=== PATIENT | male | born 1940 | race Caucasian/White ===

== ENCOUNTER 2017-05-01 19:02 | Inpatient (IN) | payer MEDICARE ==
[~2017-05-01] VITALS: Ht 167.6 cm; Wt 59.1 kg
[2017-05-01] VITALS (9 sets, daily range): BP systolic 106–137; BP diastolic 54–87
--- NOTE | ~2017-05-01 | PR ---
[place], [place] PROGRESS NOTE NAME: ELOY PURI UNIT #: [id number] ROOM: 422 DOCTOR: ANTONY LARSEN,CHARLI Lara BIRTHDATE: [birth year] DOS: 05/08/2017 ADDENDUM I agree with the above plans as described and follow the patient up clinically and adjust accordingly. CHARLI HARDY MD CM:PNTRANS [id number] CHARLI HARDY MD 05/10/17 1321 interface
--- NOTE | ~2017-05-01 | PR ---
[place], [place] PROGRESS NOTE NAME: ELOY PURI UNIT #: [id number] ROOM: 422 DOCTOR: ANTONY LARSEN,CHARLI Lara BIRTHDATE: [birth year] DOS: 05/08/2017 ADDENDUM I agree with the above plans as described and follow the patient up clinically and adjust accordingly. CHALRI HARDY MD CM:PNTRANS [id number] CHARLI HARDY MD 05/10/17 1321 interface
--- NOTE | ~2017-05-01 | PR ---
[place], [place] PROGRESS NOTE NAME: ELOY PURI UNIT #: [id number] ROOM: 422 DOCTOR: EDWIN DENG BIRTHDATE: [birth year] DOS: 05/08/2017 SUBJECTIVE: The is being followed for possible healthcare-associated pneumonia of the right lower lobe. I did review his CT results. All of his blood cultures are negative. The patient himself denies any nausea, vomiting, diarrhea. He states his breathing is better. Denies cough. Denies any pain anywhere. No recent fevers or shaking chills. WBCs ____ 12.8. He has been afebrile. MEDICATIONS: Include Mucinex, Calazime, Remeron, aspirin, Lovenox, Zosyn, Flomax, Restoril, Zofran, [place], Tylenol. LABORATORY DATA: Cultures as reviewed above. WBC is 12.8, platelets 218. BUN 10, creatinine 0.72. PHYSICAL EXAMINATION: VITAL SIGNS: Show temperature 98.3, pulse 122, respirations 18, BP 101/72: GENERAL: A 77-year-old male, in no acute distress. HEAD, EYES, EARS, NOSE AND THROAT: Normocephalic. No thrush. LUNGS: Clear to auscultation bilaterally. Respirations even and unlabored. HEART: Regular rhythm. No murmur appreciated. ABDOMEN: Soft, nondistended, nontender. EXTREMITIES: No edema or deformity. SKIN: Warm, dry and pale. Free of rashes. ASSESSMENT: Leukocytosis. We suspect healthcare associated pneumonia. PLAN: At this point in time, we will continue the Zosyn if the WBCs persist. He may need to have a modified barium swallow to evaluate for possible aspiration. Case discussed with Dr. Charli Hardy. OCTOBER ISH PINEDA [place], [place] PROGRESS NOTE NAME: ELOY PURI UNIT #: [id number] ROOM: 422 DOCTOR: EDWIN DENGOCTOBER BIRTHDATE: [birth year] CHARLI HARDY MD CM:RAJENDRA [id number] OCTOBER EDWIN SLUSHER OPERATOR 05/10/17 1318 interface
--- NOTE | ~2017-05-01 | PROC NOTE ---
[place], [place] PROCEDURE NOTE NAME: ELOY PURI UNIT #: [id number] ROOM: 422 DOCTOR: BRIANNA HERNANDEZ BIRTHDATE: [birth year] DOS: 05/10/2017 MODIFIED BARIUM SWALLOW LOCATION: [facility], room 422, bed 1. DOCTOR: Dr. Sinclair. RADIOLOGIST: Dr. Stevenson. BACKGROUND INFORMATION: The patient, a 77-year-old male, was seen for a modified barium swallow. This test was ordered to rule out aspiration. The patient was admitted from the alf with change in mental status. Medical history is significant for CVA, COPD, right eye cataract, hernia, FTT and bronchitis. The patient is also diagnosed with right lower lobe pneumonia as well as leukocytosis. He currently receives a regular diet and thin liquids. The patient denies any swallowing difficulty. He was noted to be confused. The patient was cooperative for the assessment. Congested respirations were noted as well as frequent cough prior to oral presentations. Oral peripheral examination revealed edentulous status. Labial skills were mildly reduced in range of motion. The patient was able to protrude and lateralize his tongue. When asked to elevate and depress his tongue, he did not and stated "I can't do that." The patient was able to volitionally cough and swallow. METHODS AND MATERIALS USED FOR THE EXAM: The patient was positioned in the lateral plane and examination was viewed under fluoroscopy. The patient was presented with a variety of consistencies to assess swallowing skills including applesauce mixed with barium presented in half teaspoon amounts, barium-coated cookie and banana given in bite size pieces and thin liquid barium taken by cup in single sip size amounts. ORAL PHASE: The patient achieved adequate labial seal around cup and spoon with no anterior loss. Bolus formation and transit were adequate. Mastication of soft solids was slow. Tongue to palate contact was within normal limits. Tongue to posterior pharyngeal wall contact was moderately impaired with puree and soft solid. Velar functioning was within normal limits with no nasal regurgitation. PHARYNGEAL PHASE: The pharyngeal swallow occurred within a timely manner. During the swallow, laryngeal elevation and epiglottic function were adequate. No penetration or aspiration occurred with any consistency. Pooling in the vallecula did occur with puree and soft solid. The patient appeared aware of this residue as he attempted reswallows to clear it. This was effective in clearing some of the residue. Liquid wash was also attempted and was again effective in clearing some, but not all of the residue. ESOPHAGEAL PHASE: This phase of the swallow was not formally assessed during this examination. [place], [place] PROCEDURE NOTE NAME: ELOY PURI UNIT #: [id number] ROOM: 422 DOCTOR: BRIANNA HERNANDEZ BIRTHDATE: [birth year] IMPRESSIONS AND RECOMMENDATIONS: Based upon assessment results, this 77-year-old patient exhibited a [id number] oropharyngeal dysphagia. He displayed reduced tongue to posterior pharyngeal wall contact, resulting in pooling in the vallecula. He was able to clear some of the residue with subsequent swallows and/or liquid wash. No penetration or aspiration occurred with any consistency given. Recommend the patient consume a soft diet and thin liquids. Recommend use of safe swallow strategies such as upright positioning for meals, small bites and sips, alternating liquids and solids and double swallows after every couple of bite. Followup therapy is recommended, focusing on strengthening exercises, education and use of strategies. Thank you very much for this referral. Should you have any questions regarding this patient, please contact the speech pathologist at [phone]. BRIANNA HERNANDEZ CM:PROCNOTE:PROCEDURE NOTE [id number] BRIANNA HERNANDEZ
[~2017-05-01 19:02] MED LIST: CELEXA20 MG PO; FLUOXETINE10 M1 PO; FLUOXETINE10 MG PO; LEVAQUIN750 M1 PO; MIRTAZAPINE7.5 MG; MIRTAZAPINE7.5 MG PO; MOM30 ML PO; NKHM; PERIACTIN4 MG PO; PROZAC10 M1 PO; RISPERDAL0.25 MG; RISPERDAL0.25 MG PO; TYLENOL325 M1 PO; TYLENOL325 M2 PO; VITAMIN B1250 MCG PO; VITAMIN D50000 UNIT PO; XIFAXAN200 M1 PO; ZOLPIDEM10 M1 PO
--- NOTE | 2017-05-01 19:10 | NUR ---
BRAIN ATTACK CALLED.
--- NOTE | 2017-05-01 19:30 | NUR ---
PT RESTING IN BED WITH NO DISTRESS NOTED, NO NEW DEFICITS NOTED AT THIS TIME.
[2017-05-01 19:44] LABS: BASO # 0.1 10*3/uL (0.0-0.1); BASO % 0.4 % (0.0-1.0); EOS # 0.2 10*3/uL (0.0-0.4); EOS % 1.3 % (1.0-4.0); HEMATOCRIT 41.5 % (42.0-52.0); HEMOGLOBIN 13.8 g/dl (14.0-18.0); LYMPH # 1.5 10*3/uL (1.3-4.4); LYMPH % 12.1 % (27.0-41.0); MEAN CELL VOLUME 94.5 fl (80.0-94.0); MEAN CORPUSCULAR HGB 31.4 pg (27.0-31.0); MEAN CORPUSCULAR HGB CONC 33.3 g/dl (33.0-37.0); MONO # 0.9 10*3/uL (0.1-1.0); MONO % 7.3 % (3.0-9.0); NEUT # 9.7 10*3/uL (2.3-7.9); NEUT % 76.5 % (47.0-73.0); PLATELET COUNT AUTOMATED 242 10*3/uL (130-400); RED BLOOD COUNT 4.39 10*6/uL (4.50-5.90); WHITE BLOOD COUNT 12.6 10*3/uL (4.8-10.8)
[2017-05-01 19:55] LABS: ACT PARTIAL THROMBO TIME 22.8 SECONDS (20.8-31.5)
[2017-05-01 20:03] LABS: ALBUMIN 3.1 gm/dl (3.1-4.5); ALKALINE PHOSPHATASE 79 U/L (45-117); BUN 16 mg/dl (7-24); CHLORIDE 105 mmol/L (98-107); LIPASE 278 U/L (73-393); POTASSIUM 3.9 mmol/L (3.5-5.1); SGOT/AST 18 IU/L (3-35); SGPT/ALT 23 U/L (12-78); SODIUM 140 mmol/L (136-145); TOTAL PROTEIN 6.8 gm/dL (6.4-8.2)
[2017-05-01 20:04] LABS: TROPONIN I < 0.015 ng/ml (<0.045)
--- NOTE | 2017-05-01 20:15 | NUR ---
UNSUCCESSFUL STRAIGHT CATH FOR URINE, UNABLE TO ADVANCE CATHETER, PT YELLING "IT HURTS." DR MACIAS AWARE.
[2017-05-01] MEDS ORDERED: BIOFREEZE118 ML T (23:51)
[2017-05-01] MEDS ORDERED: MEGACE 40400 MG/10 PO (23:52)
[2017-05-01] MEDS ORDERED: REMERON15 M2 PO (23:53)
[2017-05-01] MEDS ORDERED: VITAMIN D34000 UNIT PO (23:55)
[2017-05-02] VITALS: BP 131/73
--- NOTE | 2017-05-02 00:32 | NUR ---
SPOKE TO DR. BOUCHER AT THIS TIME TO INFORM OF UPDATED MEDREC. DR. BOUCHER NOTIFIED OF PREVIOUS FAILED ATTEMPT AT CATHETERIZATION IN ER. DR. BOUCHER STATED TO BLADDER SCAN THE PT. FOR VOLUME >350. IF VOLUME <350 DR. BOUCHER STATED THAT WE CAN WAIT TO SEE IF THE PT. NOTIFIES US OF NEXT URINE FOR URINE CULTURE.
--- NOTE | 2017-05-02 01:31 | NUR ---
BLADDER SCAN OF PT. SHOWED 338 OF URINE. PT. GIVEN FLOMAX PER ORDERS, WILL RE-EVALUATE TO MAINTAIN DR. BOUCHER'S PARAMETERS IN REGARDS TO CATHETERIZATION.
--- NOTE | 2017-05-02 01:39 | NUR ---
SPOKE WITH AT THIS TIME IN REGARDS TO PTS. ZOSYN ORDER. ATTEMPTED TO RE-PROFILE MED. STILL NO ACCESS ON PT. MED WILL BE OVER-RIDDEN.
--- NOTE | 2017-05-02 02:59 | NUR ---
BLADDER SCAN RE-CHECKED AT THIS TIME. PT. VOLUME AT 596, WILL MEDICATE PT. FOR PAIN PROPHYLACTICALLY PRIOR TO PERFORMING CATHETERIZATION PER DR. BOUCHER PREVIOUS PARAMETERS BY PHONE.
--- NOTE | 2017-05-02 03:02 | NUR ---
PT. GIVEN MORPHINE AT THIS TIME. PT. HAD CATHETER ATTEMPTED IN ER UNSUCCESSFULLY WITH A LOT OF PAIN PER ER NURSE. WILL WAIT FOR MEDICATION TO TAKE AFFECT PRIOR TO STRAIGHT CATH ATTEMPT.
[2017-05-02 03:25] LABS: BASO # 0.1 10*3/uL (0.0-0.1); BASO % 0.4 % (0.0-1.0); EOS # 0.2 10*3/uL (0.0-0.4); EOS % 1.3 % (1.0-4.0); HEMATOCRIT 42.2 % (42.0-52.0); HEMOGLOBIN 13.7 g/dl (14.0-18.0); LYMPH # 1.8 10*3/uL (1.3-4.4); LYMPH % 15.8 % (27.0-41.0); MEAN CELL VOLUME 95.7 fl (80.0-94.0); MEAN CORPUSCULAR HGB 31.1 pg (27.0-31.0); MEAN CORPUSCULAR HGB CONC 32.5 g/dl (33.0-37.0); MEAN PLATELET VOLUME 10.9 fl (9.6-12.3); MONO # 0.9 10*3/uL (0.1-1.0); MONO % 7.8 % (3.0-9.0); NEUT # 8.4 10*3/uL (2.3-7.9); PLATELET COUNT AUTOMATED 187 10*3/uL (130-400); RED BLOOD COUNT 4.41 10*6/uL (4.50-5.90); RED CELL DISTRI WIDTH 18.8 % (0-14.5); WHITE BLOOD COUNT 11.5 10*3/uL (4.8-10.8)
[2017-05-02 03:54] LABS: ALBUMIN 3.1 gm/dl (3.1-4.5); ALKALINE PHOSPHATASE 81 U/L (45-117); BUN 15 mg/dl (7-24); CHLORIDE 108 mmol/L (98-107); CHOLESTEROL 177 mg/dL (<200); CREATININE 0.78 mg/dL (0.70-1.30); HDL CHOLESTEROL 33 mg/dl (40-60); LDL CHOLESTEROL 132 mg/dL (9-159); MAGNESIUM 2.1 mg/dL (1.5-2.1); PHOSPHOROUS 2.6 mg/dL (2.5-4.9); SGOT/AST 25 IU/L (3-35); SGPT/ALT 23 U/L (12-78); SODIUM 141 mmol/L (136-145); TOTAL PROTEIN 6.9 gm/dL (6.4-8.2); TRIGLYCERIDES 60 mg/dl (<150); VLDL CHOLESTEROL 12 mg/dL (6-40)
--- NOTE | 2017-05-02 03:58 | NUR ---
SPOKE WITH DR. BOUCHER AT THIS TIME REGARDING CATHETERIZATION OF PT. PER DR. BOUCHER, CHANGE INTERMITTENT CATH TO GARCIA CATHETERIZATION.
--- NOTE | 2017-05-02 04:17 | NUR ---
PT. VOIDED PRIOR TO CATHETERIZATION. BLADDER SCAN SHOWED 0ML. CONTACTED DR. BOUCHER TO INFORM. DR. BOUCHER STATED TO DC THE ORDER FOR A GARCIA CATHETER.
--- NOTE | 2017-05-02 04:50 | NUR ---
ENTERED PTS. ROOM AT THIS TIME TO CONTINUE MONITORING EFFECTS OF GEODON, PT. WAS ATTEMPTING TO GET UP. PT. WAS ASKED IF HE NEEDED REPOSITIONED, PT. STATED YES. PT. WAS REPOSITIONED IN BED WITH HOB ELEVATED FOR COMFORT. PT. STATED THE NEW POSITION WAS COMFORTABLE. BED ALARM ON, WILL CONTINUE TO MONITOR PT.
--- NOTE | 2017-05-02 06:42 | NUR ---
PT. MISSING PT, APTT, B12, FOLATE, VIT. D LABS. PT. REFUSING TO BE STUCK ANYMORE. DR. BOUCHER NOTIFIED.
[2017-05-02 08:00] VITALS: BP 126/60
[2017-05-02 12:00] VITALS: BP 106/65
--- NOTE | 2017-05-02 13:23 | NUR ---
DR LIMON NOTIFIED OF PT REFUSAL TO BE ST CATHED AT THIS TIME.
[2017-05-02 20:00] VITALS: BP 105/48
[2017-05-03] VITALS: BP 123/84
--- NOTE | 2017-05-03 02:00 | NUR ---
24 HR chart check completed.
[2017-05-03 06:41] LABS: BASO # 0.1 10*3/uL (0.0-0.1); BASO % 0.4 % (0.0-1.0); EOS # 0.1 10*3/uL (0.0-0.4); HEMATOCRIT 41.9 % (42.0-52.0); LYMPH # 1.2 10*3/uL (1.3-4.4); LYMPH % 9.6 % (27.0-41.0); MEAN CELL VOLUME 94.6 fl (80.0-94.0); MEAN CORPUSCULAR HGB 31.6 pg (27.0-31.0); MEAN CORPUSCULAR HGB CONC 33.4 g/dl (33.0-37.0); MEAN PLATELET VOLUME 10.8 fl (9.6-12.3); MONO # 0.8 10*3/uL (0.1-1.0); NEUT # 10.2 10*3/uL (2.3-7.9); NEUT % 81.7 % (47.0-73.0); PLATELET COUNT AUTOMATED 149 10*3/uL (130-400); RED BLOOD COUNT 4.43 10*6/uL (4.50-5.90); RED CELL DISTRI WIDTH 18.6 % (0-14.5); WHITE BLOOD COUNT 12.5 10*3/uL (4.8-10.8)
[2017-05-03 07:12] LABS: BUN 13 mg/dl (7-24); CHLORIDE 107 mmol/L (98-107); CREATININE 0.74 mg/dL (0.70-1.30); POTASSIUM 4.4 mmol/L (3.5-5.1); SODIUM 139 mmol/L (136-145)
[2017-05-03 08:00] VITALS: BP 122/52
--- NOTE | 2017-05-03 08:30 | NUR ---
Patient resting quietly with no c/o discomfort. Respirations easy and regular. Vital signs stable. No overt distress. CODY ROGERS R
[2017-05-03 09:28] LABS: VITAMIN D, 25-HYDROXY 79.7 ng/mL (30-100)
--- NOTE | 2017-05-03 09:38 | NUR ---
per patient's chart, he was sent into the hospital from [facility], materials planner/production planner will contact [facility] and see if patient is able to return
[2017-05-03 12:00] VITALS: BP 118/54
--- NOTE | 2017-05-03 13:24 | NUR ---
PHYSICAL THERAPY Attempted PT eval but pt politely but adamantly declines participation. Will re-attempt as able. Inna Lange, PT
--- NOTE | 2017-05-03 15:20 | NUR ---
Patient comes from [facility]. Chinedu stated patient can return when stable for discharge.
[2017-05-03 16:00] VITALS: BP 123/47
[2017-05-03 20:00] VITALS: BP 105/52
[2017-05-04] VITALS: BP 120/48
[2017-05-04 05:58] LABS: BASO # 0.1 10*3/uL (0.0-0.1); BASO % 0.5 % (0.0-1.0); EOS # 0.2 10*3/uL (0.0-0.4); EOS % 1.5 % (1.0-4.0); HEMATOCRIT 43.2 % (42.0-52.0); HEMOGLOBIN 14.6 g/dl (14.0-18.0); LYMPH # 1.2 10*3/uL (1.3-4.4); LYMPH % 11.1 % (27.0-41.0); MEAN CELL VOLUME 94.3 fl (80.0-94.0); MEAN CORPUSCULAR HGB 31.9 pg (27.0-31.0); MEAN CORPUSCULAR HGB CONC 33.8 g/dl (33.0-37.0); MONO # 0.9 10*3/uL (0.1-1.0); MONO % 8.3 % (3.0-9.0); NEUT # 8.2 10*3/uL (2.3-7.9); NEUT % 76.8 % (47.0-73.0); PLATELET COUNT AUTOMATED 170 10*3/uL (130-400); RED BLOOD COUNT 4.58 10*6/uL (4.50-5.90); RED CELL DISTRI WIDTH 18.8 % (0-14.5); WHITE BLOOD COUNT 10.7 10*3/uL (4.8-10.8)
[2017-05-04 06:11] LABS: BUN 11 mg/dl (7-24); CHLORIDE 106 mmol/L (98-107); CREATININE 0.89 mg/dL (0.70-1.30); POTASSIUM 4.5 mmol/L (3.5-5.1); SODIUM 140 mmol/L (136-145)
--- NOTE | 2017-05-04 07:00 | NUR ---
URINE SAMPLE IS NEEDED FROM PT. PT IS INCONTINENT AND REFUSING TO BE STRAIGHT CATHED AT THIS TIME.
[2017-05-04 08:00] VITALS: BP 123/92
--- NOTE | 2017-05-04 09:40 | NUR ---
PHYSICAL THERAPY Attempted PT evaluation again this am, but pnt declined. He did, however, state he was w/c bound prior to admission and required assist with all transfers. Will attempt mobility eval at a later date. Dena Lopez, PT
--- NOTE | 2017-05-04 10:34 | NUR ---
DR. DOHERTY CONTACTED FOR CONSULT REGARDING ABDOMENAL PAIN AND ABNORMAL CT.
[2017-05-04 11:18] LABS: BILIRUBIN NEGATIVE (NEGATIVE); BLOOD NEGATIVE (NEGATIVE); CLARITY CLEAR (CLEAR); COLOR YELLOW (YELLOW); GLUCOSE NEGATIVE (NEGATIVE); KETONE NEGATIVE (NEGATIVE); LEUKO ESTERASE NEGATIVE (NEGATIVE); NITRITE NEGATIVE (NEGATIVE); PH 6.5 (5.0-9.0); SPECIFIC GRAVITY <= 1.005 (1.005-1.030)
[2017-05-04 11:28] LABS: RBC 0-2 rbc/hpf (0-2)
[2017-05-04 12:00] VITALS: BP 107/50
--- NOTE | 2017-05-04 14:00 | NUR ---
PT BLADDER SCANNED PER ORDER, 594CC URINE PRESENT PER BLADDER SCANNER. PT DENIES DISCOMFORT OR URGE TO URINATE. PT REFUSED OT TRY AND URINATE. NOTIFIED AND SUGGESTED A STRAIGHT CATH OR GARCIA TO BE INSERTED. PT ADAMANTLY REFUSED TO BE CATHED.
--- NOTE | 2017-05-04 15:20 | NUR ---
PHYSICAL THERAPY Physical Therapy Evaluation completed this date. See eval document for complete details. Will begin PT intervention to address muscle weakness, and decreased functional mobility independence. Recommend d/c back to the [facility] as able[place] [id number] based on chart review and PT eval. Dena Lopez, PT
[2017-05-04 16:00] VITALS: BP 90/51
--- NOTE | 2017-05-04 18:15 | NUR ---
AT BEDSIDE AND INSERTED A 18FR CUDAY INDWELLING GARCIA, IMMIDIATE RETURN OF STAR COLORED URINE 500CC OUTPUT. PT TOLERATED WELL.
--- NOTE | 2017-05-04 19:45 | NUR ---
PT. RESTING IN BED. IVF CONTINUES ORDERED VIA RAN, SITE ASYMPT. LUNGS CLEAR BILAT. ABDOMEN SOFT, NONDISTENDED AND NORMO. NO PERIPHERAL EDEMA NOTED. KNEE HIGH ODILON HOSE BILAT. RESP. EASY AND REG, NODISTRESS. CANDELARIO PEÑA RN
[2017-05-04 20:00] VITALS: BP 125/56
[2017-05-05] VITALS: BP 132/58
[2017-05-05 07:12] LABS: BASO % 0.2 % (0.0-1.0); EOS # 0.2 10*3/uL (0.0-0.4); HEMATOCRIT 45.8 % (42.0-52.0); HEMOGLOBIN 15.2 g/dl (14.0-18.0); LYMPH # 1.6 10*3/uL (1.3-4.4); LYMPH % 11.4 % (27.0-41.0); MEAN CELL VOLUME 94.6 fl (80.0-94.0); MEAN CORPUSCULAR HGB 31.4 pg (27.0-31.0); MEAN CORPUSCULAR HGB CONC 33.2 g/dl (33.0-37.0); MEAN PLATELET VOLUME 11.4 fl (9.6-12.3); MONO % 6.6 % (3.0-9.0); NEUT # 11.3 10*3/uL (2.3-7.9); NEUT % 78.8 % (47.0-73.0); PLATELET COUNT AUTOMATED 172 10*3/uL (130-400); RED BLOOD COUNT 4.84 10*6/uL (4.50-5.90); RED CELL DISTRI WIDTH 18.8 % (0-14.5); WHITE BLOOD COUNT 14.3 10*3/uL (4.8-10.8)
[2017-05-05 07:21] LABS: BUN 8 mg/dl (7-24); CHLORIDE 107 mmol/L (98-107); CREATININE 0.84 mg/dL (0.70-1.30); POTASSIUM 4.1 mmol/L (3.5-5.1); SODIUM 140 mmol/L (136-145)
[2017-05-05 08:00] VITALS: BP 127/59
--- NOTE | 2017-05-05 10:19 | NUR ---
PHYSICAL THERAPY Papa was seen this AM 1:1 for his therapy and talked into his treatment. Pt had rom, act, act assist to bilateral UE, LE working to Pt's tolerance with repeat verbal cues to help with his Ex and trying to work in all planes. Pt having pneumonia and weak and tight in bilateral UE,LE and said that he was not going to get up. SIMONA OLMEDO CLINIC OFFICE COORDINATOR.
--- NOTE | 2017-05-05 10:25 | NUR ---
DR. STONE IN ROOM TO SEE PT. PT RESTING IN BED WITH HOB ELEVATED EATING BREAKFAST. HR-120-130'S. DR. STONE AWARE.
[2017-05-05 11:09] LABS: BASO # 0.1 10*3/uL (0.0-0.1); BASO % 0.5 % (0.0-1.0); EOS # 0.2 10*3/uL (0.0-0.4); EOS % 1.1 % (1.0-4.0); HEMATOCRIT 45.9 % (42.0-52.0); HEMOGLOBIN 15.3 g/dl (14.0-18.0); LYMPH # 1.5 10*3/uL (1.3-4.4); LYMPH % 10.7 % (27.0-41.0); MEAN CELL VOLUME 94.1 fl (80.0-94.0); MEAN CORPUSCULAR HGB 31.4 pg (27.0-31.0); MEAN CORPUSCULAR HGB CONC 33.3 g/dl (33.0-37.0); MEAN PLATELET VOLUME 11.3 fl (9.6-12.3); MONO # 0.7 10*3/uL (0.1-1.0); NEUT # 11.5 10*3/uL (2.3-7.9); RED BLOOD COUNT 4.88 10*6/uL (4.50-5.90); RED CELL DISTRI WIDTH 18.8 % (0-14.5); WHITE BLOOD COUNT 14.2 10*3/uL (4.8-10.8)
[2017-05-05 11:10] LABS: PLATELET COUNT AUTOMATED 241 10*3/uL (130-400)
--- NOTE | 2017-05-05 11:16 | NUR ---
CALLED DR. BOUCHER MADE AWARE OF CRITICAL LACTIC ACID LEVEL. NO NEW ORDERS.
--- NOTE | 2017-05-05 11:29 | NUR ---
PATIENT STARTED ON CT SCAN PREP. PATIENT RECEIVING IV BOLUS, NO COMPLAINTS AT THIS TIME FROM THE PATIENT.
[2017-05-05 11:35] LABS: ALBUMIN 2.9 gm/dl (3.1-4.5); ALKALINE PHOSPHATASE 82 U/L (45-117); BUN 8 mg/dl (7-24); CHLORIDE 107 mmol/L (98-107); CREATININE 0.91 mg/dL (0.70-1.30); LIPASE 141 U/L (73-393); MAGNESIUM 2.1 mg/dL (1.5-2.1); SGOT/AST 28 IU/L (3-35); SGPT/ALT 19 U/L (12-78); SODIUM 137 mmol/L (136-145); TOTAL PROTEIN 7.3 gm/dL (6.4-8.2); TROPONIN I < 0.015 ng/ml (<0.045)
[2017-05-05 12:00] VITALS: BP 109/67
--- NOTE | 2017-05-05 13:38 | NUR ---
PATIENT LAB RESULT OF LACTIC ACID 2.1. DR. BOUCHER NOTIFIED, NO FURTHER ORDERS GIVEN.
--- NOTE | 2017-05-05 15:39 | NUR ---
PATIENT LAYING COMFORTABLY IN BED. PATIENT IS CURRENTLY RECEIVING IVPB VANC. DENIES ANY SOB OR N/V/D. PATIENT HAS ABD TENDERNESS IN LLQ AND RLQ. STUDENT NURSE WILL CONTINUE DOCUMENTATION AND MED ADMINISTRATION.
[2017-05-05 16:00] VITALS: BP 119/67
--- NOTE | 2017-05-05 16:08 | NUR ---
DR. BOUCHER MADE AWARE OF LACTIC ACID LEVEL. NO NEW ORDERS AT THIS TIME.
[2017-05-05 20:00] VITALS: BP 120/52
[2017-05-06] VITALS: BP 131/66
--- NOTE | 2017-05-06 02:43 | NUR ---
PATIENT RESTING IN BED WITH EYES CLOSED. RESPS EASY AND REGULAR. BED IN LOWEST POSITION, CALL LIGHT IN REACH
--- NOTE | 2017-05-06 03:00 | NUR ---
24 HR chart check completed.
[2017-05-06 07:50] LABS: HEMATOCRIT 42.9 % (42.0-52.0); HEMOGLOBIN 14.1 g/dl (14.0-18.0); MEAN CELL VOLUME 95.1 fl (80.0-94.0); MEAN CORPUSCULAR HGB 31.3 pg (27.0-31.0); MEAN CORPUSCULAR HGB CONC 32.9 g/dl (33.0-37.0); MEAN PLATELET VOLUME 11.3 fl (9.6-12.3); PLATELET COUNT AUTOMATED 199 10*3/uL (130-400); RED BLOOD COUNT 4.51 10*6/uL (4.50-5.90); RED CELL DISTRI WIDTH 18.7 % (0-14.5)
[2017-05-06 08:00] VITALS: BP 137/66
[2017-05-06 08:06] LABS: BUN 6 mg/dl (7-24); CHLORIDE 107 mmol/L (98-107); CREATININE 0.82 mg/dL (0.70-1.30); SODIUM 141 mmol/L (136-145)
[2017-05-06 08:07] LABS: TOTAL CELLS COUNTED 100 #CELLS
[2017-05-06 08:09] LABS: PLATELET SUFFICIENCY NORMAL (NORMAL)
--- NOTE | 2017-05-06 08:45 | NUR ---
PHYSICAL THERAPY Patient refused therapy x 2 this AM saying he dosen't feel like it. Will check back later with the patient. Haresh Gomes PRIVATE DETECTIVE
[2017-05-06 12:00] VITALS: BP 115/60
[2017-05-06 16:00] VITALS: BP 118/49; BP 118/60
--- NOTE | 2017-05-06 16:00 | NUR ---
HOB ELEVATED, EASY RESPIRATIONS WITH SKIN W/D. GENERALIZED WEAKNESS & STIFFNESS. ANSWERS ASSESSMENT QUESTIONS APPROPRIATELY, FLAT AFFECT. CALL LIGHT SYSTEM REINFORCED FOR ASSISTANCE. SEE SHIFT ASSESSMENT.
--- NOTE | 2017-05-06 19:17 | NUR ---
NO OBVIOUS CHANGES NOTED THIS SHIFT.
--- NOTE | 2017-05-06 19:55 | NUR ---
PT AWAKE AND ALERT. NO DISTRESS NOTED. RESPIRATIONS ARE UNLABORED. SKIN W/D. HOB ELEVATED.
[2017-05-06 20:00] VITALS: BP 144/70
--- NOTE | 2017-05-06 20:05 | NUR ---
24 HOUR CHART CHECK COMPLETED.
--- NOTE | 2017-05-06 23:00 | NUR ---
ASSUMED CARE OF PT AT THIS TIME, RESPS EASY AND NONLABORED WITH NO S/S OF DISTRESS CALL LIGHT WITH IN REACH
[2017-05-07] VITALS: BP 138/74
--- NOTE | 2017-05-07 04:50 | NUR ---
PT RESTING IN BED WITH EYES CLOSED RESPS EASY AND NONLABORED WITH NO S/S OF DISTRESS, CALL LIGHT WITH IN REACH
[2017-05-07 06:17] LABS: HEMATOCRIT 40.8 % (42.0-52.0); HEMOGLOBIN 13.6 g/dl (14.0-18.0); MEAN CELL VOLUME 95.1 fl (80.0-94.0); MEAN CORPUSCULAR HGB 31.7 pg (27.0-31.0); MEAN CORPUSCULAR HGB CONC 33.3 g/dl (33.0-37.0); MEAN PLATELET VOLUME 11.6 fl (9.6-12.3); PLATELET COUNT AUTOMATED 209 10*3/uL (130-400); RED BLOOD COUNT 4.29 10*6/uL (4.50-5.90); RED CELL DISTRI WIDTH 18.6 % (0-14.5); WHITE BLOOD COUNT 12.8 10*3/uL (4.8-10.8)
[2017-05-07 06:29] LABS: ALBUMIN 2.6 gm/dl (3.1-4.5); ALKALINE PHOSPHATASE 72 U/L (45-117); BUN 8 mg/dl (7-24); CHLORIDE 109 mmol/L (98-107); CREATININE 0.84 mg/dL (0.70-1.30); SGOT/AST 18 IU/L (3-35); SGPT/ALT 16 U/L (12-78); SODIUM 142 mmol/L (136-145); TOTAL PROTEIN 6.5 gm/dL (6.4-8.2)
[2017-05-07 07:04] LABS: TOTAL CELLS COUNTED 100 #CELLS
[2017-05-07 07:05] LABS: PLATELET SUFFICIENCY NORMAL (NORMAL)
[2017-05-07 08:00] VITALS: BP 150/53
--- NOTE | 2017-05-07 11:52 | NUR ---
PHYSICAL THERAPY Mr Manzo seen this PM 1:1 for his physical therapy session. Papa said NO that her did not want any therapy, did not want his arms or legs touched. He said that he was ok and was doing Ex ? SIMONA OLMEDO SPRING CLIPPER.
[2017-05-07 12:00] VITALS: BP 136/70
--- NOTE | 2017-05-07 12:28 | NUR ---
Faxed patient clincals to [place] for review.
--- NOTE | 2017-05-07 13:54 | NUR ---
Patient LTC at the [facility], can return when stable for discharge.
[2017-05-07 16:00] VITALS: BP 132/57
--- NOTE | 2017-05-07 19:48 | NUR ---
24 HOUR CHART CHECK COMPLETED.
[2017-05-07 20:00] VITALS: BP 129/71
[2017-05-08] VITALS: BP 142/68
--- NOTE | 2017-05-08 01:39 | NUR ---
PATIENT IS RESTING COMFORTABLY IN BED. PILLOWS PLACED UNDER ARMS TO PREVENT SKIN BREAKDOWN FROM CONTRACTURES IN UPPER EXTREMITIES. PATIENT WAS COOPERATIVE UPON ASSESSMENT. NO FURTHER REQUESTS AT THIS TIME. CALL LIGHT SYSTEM REINFORCED AND WITHIN REACH, SEE SHIFT ASSESSMENT.
[2017-05-08 06:12] LABS: HEMATOCRIT 41.6 % (42.0-52.0); MEAN CELL VOLUME 93.9 fl (80.0-94.0); MEAN CORPUSCULAR HGB 31.6 pg (27.0-31.0); MEAN CORPUSCULAR HGB CONC 33.7 g/dl (33.0-37.0); MEAN PLATELET VOLUME 10.8 fl (9.6-12.3); PLATELET COUNT AUTOMATED 218 10*3/uL (130-400); RED BLOOD COUNT 4.43 10*6/uL (4.50-5.90); RED CELL DISTRI WIDTH 18.3 % (0-14.5); WHITE BLOOD COUNT 12.8 10*3/uL (4.8-10.8)
--- NOTE | 2017-05-08 06:30 | NUR ---
PATIENT IS RESTING IN BED. PATIENT HASN'T HAD ANY PAIN THROUGHOUT THE NIGHT AND HAS NO FURTHER REQUESTS AT THIS TIME. CALL LIGHT IS WITHIN REACH.
[2017-05-08 06:38] LABS: PLATELET SUFFICIENCY NORMAL (NORMAL); TOTAL CELLS COUNTED 100 #CELLS
[2017-05-08 06:42] LABS: BUN 10 mg/dl (7-24); CHLORIDE 105 mmol/L (98-107); CREATININE 0.72 mg/dL (0.70-1.30); POTASSIUM 3.6 mmol/L (3.5-5.1); SODIUM 137 mmol/L (136-145)
--- NOTE | 2017-05-08 07:30 | NUR ---
[facility] SN AND INSTRUCTOR CHUCK POSADAS. ASSUMING CARE OF PT.
[2017-05-08 08:00] VITALS: BP 136/67
--- NOTE | 2017-05-08 09:45 | NUR ---
PT C/O NUMBNESS, UPON FURTHER ASSESSMENT PT STATES HE "FEELS NUMB ALL OVER" AND "THATS MOST OF THE TIME".PT THEN STATED HE FELT NAUSEOUS AND HE HADN'T ORDERED BREAKFAST. [facility] SN ASSISTED HIM WITH BREAKFAST ORDER. NOTIFIED DR GEORGES WHO WAS ROUNDING AT THIS TIME. NO NEW ORDERS.WILL CONTINUE TO MONITOR. CALL LIGHT IN REACH.
--- NOTE | 2017-05-08 11:22 | NUR ---
NOTIFIED BY TEST DIRECTOR THAT PT HR WAS HOLDING ABOVE 130. PT WAS EATING BREAKFAST AND HAD JUST HAD BATH. ENCOURAGE PT TO BEAR DOWN. IMMEDIATELY HR DROPPED INTO 120'S. PT CONTINUES TO EAT. WILL MONITOR.
[2017-05-08 12:00] VITALS: BP 101/72
--- NOTE | 2017-05-08 14:10 | NUR ---
RAVI PINEDA CNP., ROUNDED FOR INFECTIOUS DISEASE, NO NEW ORDERS.
[2017-05-08 16:00] VITALS: BP 108/70
[2017-05-08 20:00] VITALS: BP 129/70
--- NOTE | 2017-05-08 20:47 | NUR ---
PATIENT RESTING COMFORTABLY IN BED. NO VOICED COMPLAINTS AT THIS TIME. RESPIRATIONS EASY/REG. ON RA, DENIES SOB. TEDS ON. FLUIDS MAINTAINED PER ORDER. CALL LIGHT IN REACH.
[2017-05-09] VITALS: BP 138/63
[2017-05-09 05:56] LABS: HEMATOCRIT 40.6 % (42.0-52.0); HEMOGLOBIN 13.7 g/dl (14.0-18.0); MEAN CELL VOLUME 94.2 fl (80.0-94.0); MEAN CORPUSCULAR HGB 31.8 pg (27.0-31.0); MEAN CORPUSCULAR HGB CONC 33.7 g/dl (33.0-37.0); MEAN PLATELET VOLUME 11.2 fl (9.6-12.3); PLATELET COUNT AUTOMATED 209 10*3/uL (130-400); RED BLOOD COUNT 4.31 10*6/uL (4.50-5.90); RED CELL DISTRI WIDTH 18.5 % (0-14.5); WHITE BLOOD COUNT 11.4 10*3/uL (4.8-10.8)
[2017-05-09 06:40] LABS: TOTAL CELLS COUNTED 100 #CELLS
[2017-05-09 06:41] LABS: PLATELET SUFFICIENCY NORMAL (NORMAL)
[2017-05-09 08:00] VITALS: BP 106/86; BP 122/60
--- NOTE | 2017-05-09 08:00 | NUR ---
SLEEPING, AROUSES EASILY WITH NO VOICED C/O OFFERED. EASY RESPIRATIONS WITH SKIN W/D. REPOSITIONED FOR COMFORT & TO RELIEVE PRESSURE AREAS. SEE SHIFT ASSESSMENT.
--- NOTE | 2017-05-09 10:00 | NUR ---
DR GEORGES IN TO SEE PT.
--- NOTE | 2017-05-09 10:21 | NUR ---
REFUSES TO GET OOB TO CHAIR.
--- NOTE | 2017-05-09 11:19 | NUR ---
DR GUERRA CALLED REGARDING RENEWAL OF ABX.
[2017-05-09 12:00] VITALS: BP 126/88
--- NOTE | 2017-05-09 13:07 | NUR ---
PT REFUSING TO EAT, SPOKE WITH HIS EARLIER THIS SHIFT REGARDING POOR APPETITE. STATES THIS IS ONGOING PROBLEM. OFFERED PT MULTUPLE CHOICES, CONTINUES TO DECLINE.
--- NOTE | 2017-05-09 13:13 | NUR ---
SPOKE WITH DR GEORGES REGARDING POOR APPETITE, NEW ORDERS RECEIVED.
[2017-05-09 16:00] VITALS: BP 129/72
--- NOTE | 2017-05-09 19:19 | NUR ---
NO OBVIOUS CHANGES NOTED THIS SHIFT.
[2017-05-09 20:00] VITALS: BP 132/74
--- NOTE | 2017-05-09 20:35 | NUR ---
PT RESTING IN BED. RESP-EASY AND REGULAR. NO C/O AT THIS TIME. ABD TENER TO TOUCH. DENIES ANY PAIN AT THIS TIME. CALL LIGHT IN REACH. SEE SHIFT ASSESSMENT.
--- NOTE | 2017-05-09 22:00 | NUR ---
PT RESTING IN BED. NO C/O AT THIS TIME. CALL LIGHT IN REACH.
[2017-05-10] VITALS: BP 126/81
--- NOTE | 2017-05-10 00:20 | NUR ---
PT SLEEPING IN BED, AWAKENS EASILY. RESP-EASY AND REGULAR. DENIES ANY PAIN AT THIS TIME. TOLERATED ROUTINE IV MED WITH NO PROBLEM. CALL LIGHT IN REACH. SEE SHIFT ASSESSMENT.
--- NOTE | 2017-05-10 04:00 | NUR ---
PT SLEEPING IN BED. RESP-EASY AND REGULAR. CALL LIGHT IN REACH.
--- NOTE | 2017-05-10 06:20 | NUR ---
TOLERATING IV MED WITH NO PROBLEM. REPOSITIONED FOR COMFORT. CALL LIGHT IN REACH.
[2017-05-10 06:32] LABS: HEMATOCRIT 40.9 % (42.0-52.0); HEMOGLOBIN 13.9 g/dl (14.0-18.0); MEAN CELL VOLUME 94.9 fl (80.0-94.0); MEAN CORPUSCULAR HGB 32.3 pg (27.0-31.0); MEAN PLATELET VOLUME 11.4 fl (9.6-12.3); PLATELET COUNT AUTOMATED 267 10*3/uL (130-400); RED BLOOD COUNT 4.31 10*6/uL (4.50-5.90); RED CELL DISTRI WIDTH 18.2 % (0-14.5); WHITE BLOOD COUNT 10.7 10*3/uL (4.8-10.8)
[2017-05-10 06:36] LABS: ALBUMIN 2.8 gm/dl (3.1-4.5); ALKALINE PHOSPHATASE 76 U/L (45-117); BUN 13 mg/dl (7-24); CHLORIDE 106 mmol/L (98-107); CREATININE 0.74 mg/dL (0.70-1.30); POTASSIUM 3.5 mmol/L (3.5-5.1); SGOT/AST 18 IU/L (3-35); SGPT/ALT 20 U/L (12-78); SODIUM 140 mmol/L (136-145); TOTAL PROTEIN 7.4 gm/dL (6.4-8.2)
[2017-05-10 06:56] LABS: PLATELET SUFFICIENCY NORMAL (NORMAL); TOTAL CELLS COUNTED 100 #CELLS
[2017-05-10 08:00] VITALS: BP 131/77
--- NOTE | 2017-05-10 09:00 | NUR ---
patient will be going back to [facility] when medically stable
--- NOTE | 2017-05-10 09:27 | NUR ---
PHYSICAL THERAPY Mr Manzo seen this AM 1:1 and talked into his therapy session. Pt had rom stretching, what act assist, act Ex he could do to bilateral LE/UE working to Pt's tolerance slow and Papa did not get up-set with me this morning. Pt having left LE -10,12d knee extension spending more time with left knee extension. Pt not wanting up on the side of his bed or up in bedside chair. SIMONA OLMEDO DIRECTOR OF ANNUAL GIVING.
[2017-05-10 12:00] VITALS: BP 147/76
--- NOTE | 2017-05-10 15:02 | NUR ---
SPEECH PATHOLOGY MBS completed as per orders. Patient exhibited a mild-moderate oropharyngeal dysphagia. He displayed reduced tongue to posterior pharyngeal wall contact resulting in pooling in the valleculae. He was able to clear some of the residue with subsequent swallows and liquid wash. No penetration or aspiration occurred with any consistency given. Recommend soft diet and thin liquids. Recommend use of safe swallow strategies such as upright for meals, small bites and sips, alternating liquids and solids and double swallows after every couple bites. Follow up therapy is recommended to ensure safety of swallow through education, use of strategies and strengthening exercises. Will inform patient's nurse of results and mary. and dictated report will follow. Thank you for this referral. BRIANNA HERNANDEZ MSCCC-CRISIS THERAPIST
[2017-05-10 16:00] VITALS: BP 108/75
[2017-05-10 16:10] LABS: LEGIONELLA URINARY ANTIGEN Negative (Negative)
[2017-05-10] MEDS ORDERED: AUGMENTIN 875-875 MG PO (16:10)
[2017-05-10] MEDS ORDERED: MUCINEX ER600 MG PO (16:10)
[2017-05-10] MEDS ORDERED: ASPIRIN ADULT L81 M2 PO (16:10)
[2017-05-10] MEDS ORDERED: FLOMAX0.4 MG PO (16:10)
[2017-05-10] MEDS ORDERED: LOPRESSOR25 MG PO (16:10)
--- NOTE | 2017-05-10 16:57 | NUR ---
PATIENT BEING DISCHARGED BACK TO [facility]. REPORT WAS GIVEN TO SATHYA, FULL HOSPITAL CARE REPORT GIVEN, FULL HEAD TO TOE. NO CONCERNS FROM THE NURSE. WAITING FOR LFE TEAM TO WOOD INSPECTOR PATIENT.
--- NOTE | 2017-05-10 18:38 | NUR ---
Discharge instructions reviewed with patient/family. Patient receptive and verbalizes understanding. Follow-up care arranged. Written instructions given to patient/family. JUSTIN LOZA
--- NOTE | 2017-05-11 07:46 | NUR ---
PHYSICAL THERAPY CO-SIGN I approve of the Phyical Therapy notes written above. KEVIN VELAZQUEZ PT
== END 2017-05-10 18:38 | disposition other institution (70) | DRG 70 ==
LOC: ED 19:02 → EDHOLD 21:31 → 4E 21:31
PROVIDERS: Emergency Medicine Emergency Medical Services; Family Medicine; Hospitalist; Internal Medicine; ADMIT Internal Medicine
PROC: BD1BYZZ Fluoroscopy of Mouth/Oropharynx using Other Contrast (ICD-10-PCS; principal; 2017-05-10)
PROC: BD11YZZ Fluoroscopy of Esophagus using Other Contrast (ICD-10-PCS; principal; 2017-05-10)
DX: G93.41 Metabolic encephalopathy (principal); J18.9 Pneumonia, unspecified organism; E44.0 Moderate protein-calorie malnutrition; E86.0 Dehydration; F03.90 Unspecified dementia, unspecified severity, without behavioral disturbance, psychotic disturbance, mood disturbance, and anxiety; E87.8 Other disorders of electrolyte and fluid balance, not elsewhere classified; J44.0 Chronic obstructive pulmonary disease with (acute) lower respiratory infection; F33.9 Major depressive disorder, recurrent, unspecified; D53.9 Nutritional anemia, unspecified; K59.00 Constipation, unspecified; E78.5 Hyperlipidemia, unspecified; Z86.73 Personal history of transient ischemic attack (TIA), and cerebral infarction without residual deficits; Z87.01 Personal history of pneumonia (recurrent); Z87.440 Personal history of urinary (tract) infections; Z98.49 Cataract extraction status, unspecified eye; Z79.899 Other long term (current) drug therapy; Z68.21 Body mass index [BMI] 21.0-21.9, adult

== ENCOUNTER 2017-07-24 10:22 | Emergency (ER) | payer MEDICARE ==
[~2017-07-24] VITALS: Wt 50.8 kg
[~2017-07-24 10:22] MED LIST changes: +ASPIRIN ADULT L81 M2 PO; +AUGMENTIN 875-875 MG PO; +BIOFREEZE118 ML T; +FLOMAX0.4 MG PO; +LOPRESSOR25 MG PO; +MEGACE 40400 MG/10 PO; +MUCINEX ER600 MG PO; +REMERON15 M2 PO; +VITAMIN D34000 UNIT PO
[2017-07-24 11:05] LABS: BILIRUBIN NEGATIVE (NEGATIVE); BLOOD 2+ (NEGATIVE); CLARITY CLEAR (CLEAR); COLOR YELLOW (YELLOW); GLUCOSE NEGATIVE (NEGATIVE); KETONE NEGATIVE (NEGATIVE); LEUKO ESTERASE NEGATIVE (NEGATIVE); NITRITE NEGATIVE (NEGATIVE); UROBILINOGEN 0.2 E.U./dl (0.2-1.0)
[2017-07-24] MEDS ORDERED: TAMSULOSIN HCL0.4 MG PO (11:07)
[2017-07-24] MEDS ORDERED: MULTIVITAMINS1 EAC5 PO (11:08)
[2017-07-24 11:13] LABS: WBC 0-2 wbc/hpf (0-5)
[2017-07-24 11:14] LABS: RBC 21-30 rbc/hpf (0-2)
[2017-07-24 11:50] LABS: BASO # 0.1 10*3/uL (0.0-0.1); BASO % 0.5 % (0.0-1.0); EOS # 0.1 10*3/uL (0.0-0.4); EOS % 1.2 % (1.0-4.0); HEMATOCRIT 44.6 % (42.0-52.0); HEMOGLOBIN 14.4 g/dl (14.0-18.0); LYMPH # 1.5 10*3/uL (1.3-4.4); MEAN CELL VOLUME 96.1 fl (80.0-94.0); MEAN CORPUSCULAR HGB CONC 32.3 g/dl (33.0-37.0); MEAN PLATELET VOLUME 11.4 fl (9.6-12.3); MONO # 0.8 10*3/uL (0.1-1.0); MONO % 7.9 % (3.0-9.0); NEUT # 7.5 10*3/uL (2.3-7.9); NEUT % 74.1 % (47.0-73.0); PLATELET COUNT AUTOMATED 175 10*3/uL (130-400); RED BLOOD COUNT 4.64 10*6/uL (4.50-5.90); RED CELL DISTRI WIDTH 15.7 % (0-14.5); WHITE BLOOD COUNT 10.1 10*3/uL (4.8-10.8)
[2017-07-24 11:58] LABS: ACT PARTIAL THROMBO TIME 22.7 SECONDS (20.8-31.5)
[2017-07-24 12:10] LABS: ALBUMIN 3.3 gm/dl (3.1-4.5); ALKALINE PHOSPHATASE 91 U/L (45-117); BUN 15 mg/dl (7-24); CHLORIDE 106 mmol/L (98-107); CREATININE 0.71 mg/dL (0.70-1.30); LIPASE 138 U/L (73-393); POTASSIUM 3.8 mmol/L (3.5-5.1); SGOT/AST 19 IU/L (3-35); SGPT/ALT 24 U/L (12-78); SODIUM 139 mmol/L (136-145)
[2017-07-24 12:14] LABS: TROPONIN I < 0.015 ng/ml (<0.045)
== END 2017-07-24 14:20 | disposition home or self-care (01) ==
LOC: ED 10:22
PROVIDERS: Emergency Medicine
DX: K59.00 Constipation, unspecified (principal); J44.9 Chronic obstructive pulmonary disease, unspecified; Z79.899 Other long term (current) drug therapy; Z86.73 Personal history of transient ischemic attack (TIA), and cerebral infarction without residual deficits

== ENCOUNTER 2018-07-27 | Inpatient (IN) | payer MEDICARE ==
[~2018-07-27] MED LIST changes: +MULTIVITAMINS1 EAC5 PO; +TAMSULOSIN HCL0.4 MG PO
--- NOTE | ~2018-07-27 | EKG ---
[place], [place] ELECTROCARDIOGRAM REPORT NAME: ELOY PURI UNIT #: [id number] ROOM: 507 DOCTOR: JESSIE DRAFT REPORT BIRTHDATE: [address] [facility] Test Date: 2018-07-27 Test Time: 09:46:05 Pat Name: ELOY PURI Department: Room: 507 Gender: M Modeling Director: Radha Menjivar : 1940 Requested By: DANIEL VIZCARRA PA-C Order Number: [id number] Reading MD: Gabo Walters MD Measurements Intervals [place] Rate: 66 P: 81 MD: 186 QRS: 61 QRSD: 79 T: 65 QT: 435 QTc: 456 Interpretive Statements Sinus rhythm Low voltage, extremity and precordial leads Probable anteroseptal infarct, old Baseline wander in lead(s) V5 Electronically Signed On 07-28-2018 18:08:02 PST by Gabo Walters MD CM:EKGRPT:ELECTROCARDIOGRAM REPORT [id number] DANIEL VIZCARRA PA-C EPIPHANY DRAFT REPORT DANIEL VIZCARRA PA-C
[2018-07-27 09:46] VITALS: BP 104/42
[2018-07-27 10:32] LABS: INTERNATIONAL NORM RATIO 1.1 (2.0-3.5)
[2018-07-27 10:44] LABS: BASO # 0.1 10*3/uL (0.0-0.1); BASO % 0.8 % (0.0-1.0); EOS # 0.3 10*3/uL (0.0-0.4); EOS % 3.2 % (1.0-4.0); HEMATOCRIT 49.5 % (42.0-52.0); LYMPH # 1.7 10*3/uL (1.3-4.4); LYMPH % 19.4 % (27.0-41.0); MEAN CELL VOLUME 90.7 fl (80.0-94.0); MEAN CORPUSCULAR HGB 29.3 pg (27.0-31.0); MEAN CORPUSCULAR HGB CONC 32.3 g/dl (33.0-37.0); MEAN PLATELET VOLUME 11.6 fl (9.6-12.3); MONO # 0.6 10*3/uL (0.1-1.0); MONO % 6.2 % (3.0-9.0); NEUT # 6.2 10*3/uL (2.3-7.9); NEUT % 70.1 % (47.0-73.0); PLATELET COUNT AUTOMATED 192 10*3/uL (130-400); RED BLOOD COUNT 5.46 10*6/uL (4.50-5.90); RED CELL DISTRI WIDTH 18.7 % (0-14.5); WHITE BLOOD COUNT 8.8 10*3/uL (4.8-10.8)
[2018-07-27 11:02] LABS: ALBUMIN 3.3 gm/dl (3.1-4.5); ALKALINE PHOSPHATASE 122 U/L (45-117); BUN 10 mg/dl (7-24); CHLORIDE 109 mmol/L (98-107); CREATININE 0.75 mg/dL (0.70-1.30); POTASSIUM 4.1 mmol/L (3.5-5.1); SGOT/AST 26 IU/L (3-35); SGPT/ALT 24 U/L (12-78); SODIUM 141 mmol/L (136-145); TOTAL PROTEIN 6.7 gm/dL (6.4-8.2)
[2018-07-27 11:04] LABS: TROPONIN I < 0.015 ng/ml (<0.045)
[2018-07-27 11:14] LABS: BILIRUBIN NEGATIVE (NEGATIVE); BLOOD 3+ (NEGATIVE); CLARITY CLOUDY (CLEAR); GLUCOSE NEGATIVE (NEGATIVE); KETONE NEGATIVE (NEGATIVE); LEUKO ESTERASE TRACE (NEGATIVE); NITRITE POSITIVE (NEGATIVE); PH 7.5 (5.0-9.0); SPECIFIC GRAVITY 1.015 (1.005-1.030)
[2018-07-27 11:15] LABS: COLOR RED (YELLOW)
[2018-07-27 11:25] LABS: BACTERIA 4+; RBC TNTC rbc/hpf (0-2)
[2018-07-27 12:00] VITALS: BP 104/48
--- NOTE | 2018-07-27 13:20 | NUR ---
Time: 1319 A 78 year old MALE admitted to under services of PEYTON CAZARES DO. Pt. arrived via stretcher from ER. Chief complaint: UTI, SHORTNESS OF BREATH. CODY ROGERS
[2018-07-27] MEDS ORDERED: CALMOSEPTINE OI71 GM T (13:43)
[2018-07-27] MEDS ORDERED: MILK OF MA400 MG/5 M PO (13:45)
--- NOTE | 2018-07-27 14:07 | NUR ---
PHYSICAL THERAPY Nursing screen received. PT orders also received. Thank you. Suzie Roldan,PT
--- NOTE | 2018-07-27 15:40 | NUR ---
MED REC UPDATED PER LIST FROM [facility]. DR FREITAS ON FLOOR AND NOTIFIED.
[2018-07-27 16:00] VITALS: BP 117/52
--- NOTE | 2018-07-27 16:24 | NUR ---
Nursing screen received and Occupational Therapy referral received. Thank you. Ashia Berry OTR/l
--- NOTE | 2018-07-27 16:53 | NUR ---
IV SITE INFLITRATED. PT REFUSES NEW IV SITE. ASKED BY 2 NURSES. PT STILL REFUSES. DR RUIZ CALLED AND NOTIFIED. PT INFO GIVEN AND VITAL SIGNS. HE GAVE ORDERS FOR VITAL Q4 HRS FOR 48 HOURS.
[2018-07-27 20:00] VITALS: BP 108/54
--- NOTE | 2018-07-27 21:06 | NUR ---
PATIENT RESTING IN BED WITH NO NEEDS MADE. NO S/S OF DISTRESS. DENIES ANY SHORTNESS OF BREATH OR COUGH AT THIS TIME. BED IN LOWEST POSITION, CALL LIGHT IN REACH
--- NOTE | 2018-07-27 21:51 | NUR ---
24 HR chart check completed.
[2018-07-28 01:47] VITALS: BP 110/58
--- NOTE | 2018-07-28 03:27 | NUR ---
PATIENT RESTING IN BED WITH NO S/S OF DISTRESS, BED IN LOWEST POSITION, CALL LIGHT IN REACH
[2018-07-28 04:00] VITALS: BP 105/44
[2018-07-28 06:36] LABS: BASO % 0.4 % (0.0-1.0); EOS # 0.2 10*3/uL (0.0-0.4); EOS % 1.4 % (1.0-4.0); HEMATOCRIT 48.8 % (42.0-52.0); HEMOGLOBIN 15.7 g/dl (14.0-18.0); LYMPH # 1.3 10*3/uL (1.3-4.4); LYMPH % 12.2 % (27.0-41.0); MEAN CELL VOLUME 90.5 fl (80.0-94.0); MEAN CORPUSCULAR HGB 29.1 pg (27.0-31.0); MEAN CORPUSCULAR HGB CONC 32.2 g/dl (33.0-37.0); MEAN PLATELET VOLUME 12.1 fl (9.6-12.3); MONO # 0.6 10*3/uL (0.1-1.0); MONO % 6.1 % (3.0-9.0); NEUT # 8.3 10*3/uL (2.3-7.9); NEUT % 79.1 % (47.0-73.0); PLATELET COUNT AUTOMATED 164 10*3/uL (130-400); RED BLOOD COUNT 5.39 10*6/uL (4.50-5.90); RED CELL DISTRI WIDTH 18.8 % (0-14.5); WHITE BLOOD COUNT 10.5 10*3/uL (4.8-10.8)
[2018-07-28 06:47] LABS: BUN 10 mg/dl (7-24); CHLORIDE 106 mmol/L (98-107); CHOLESTEROL 162 mg/dL (<200); CREATININE 0.69 mg/dL (0.70-1.30); HDL CHOLESTEROL 32 mg/dl (40-60); LDL CHOLESTEROL 113 mg/dL (9-159); PHOSPHOROUS 2.8 mg/dL (2.5-4.9); POTASSIUM 4.2 mmol/L (3.5-5.1); SODIUM 141 mmol/L (136-145); TRIGLYCERIDES 84 mg/dl (<150); VLDL CHOLESTEROL 17 mg/dL (6-40)
[2018-07-28 08:00] VITALS: BP 112/58
--- NOTE | 2018-07-28 08:30 | NUR ---
Patient resting quietly with no c/o discomfort. Respirations easy and regular. Vital signs stable. No overt distress. CODY ROGERS R
[2018-07-28 08:59] LABS: VITAMIN D, 25-HYDROXY 75.3 ng/mL (30-100)
--- NOTE | 2018-07-28 09:00 | NUR ---
Wood Dowel Machine Operator in to talk to patient. Patient states lives at home alone with family checking in on him. There are few steps in the home. Physician: Dr. Beavers Pharmacy: [facility]: has had in the past but not currently and doesn't remember the name of the company Patient's level of ADLs: MINIMAL ASSIST Patient has working utilities: yes DME: walker Follow-up physician's appointment after d/c: he prefers to make his own follow up appt after discharge Does patient want to access PORTAL?: no Discharge plan discussed with patient. He lives at home alone with his family checking in on him. He states he is independent in his ADLs and ambulates with a walker. Discussed home health care services and he denies any home needs at this time. When medically stable he will be discharged to home. KEAGAN COKER
--- NOTE | 2018-07-28 09:40 | NUR ---
PT AGREEABLE TO IV PLACEMENT. IV INSERTED, IVF AND ABX GIVEN.
--- NOTE | 2018-07-28 10:45 | NUR ---
Patient not available for Occupational Therapy evaluation as he was with the physician. Ashia Berry OTR/L
--- NOTE | 2018-07-28 10:45 | NUR ---
PHYSICAL THERAPY PAtient with multiple MDs at this time. Thank you for this referral. Suzie Roldan,PT
--- NOTE | 2018-07-28 13:16 | NUR ---
Patient is a fdc care resident of [facility] and can return when medically stable.
--- NOTE | 2018-07-28 13:19 | NUR ---
Patient is discharged back to the [facility] will transport at 2PM, [place] and nursing notified.
--- NOTE | 2018-07-28 13:30 | NUR ---
REPORT CALLED TO [facility].
--- NOTE | 2018-07-28 13:30 | NUR ---
Patient offered Occupational Therapy evaluation this date.Patient reports that he does not feel well and cannot participate in OT eval today. OTR will attempt at a later time. Ashia Berry OTR/Reginald
--- NOTE | 2018-07-28 13:59 | NUR ---
PHYSICAL THERAPY PAtient respectfully declines PT sevices this date. Thank you for this referral. Suzie Roldan,PT
--- NOTE | 2018-07-28 14:11 | NUR ---
Discharge instructions reviewed with patient/family. Patient receptive and verbalizes understanding. Follow-up care arranged. Written instructions given to patient/family. CODY ROGERS
--- NOTE | 2018-07-28 14:11 | NUR ---
PT CALLS UNIT AND UPDATED ON PT RETURN TO [facility]
[2018-12-06] MEDS ORDERED: PROSCAR5 M1 PO (15:37)
== END 2018-07-28 14:07 | DRG 690 ==
PROVIDERS: Internal Medicine; Student in an Organized Health Care Education/Training Program; ADMIT Internal Medicine
DX: N39.0 Urinary tract infection, site not specified (principal); J44.9 Chronic obstructive pulmonary disease, unspecified; E78.5 Hyperlipidemia, unspecified; F32.9 Major depressive disorder, single episode, unspecified; N40.0 Benign prostatic hyperplasia without lower urinary tract symptoms; K59.00 Constipation, unspecified; E87.8 Other disorders of electrolyte and fluid balance, not elsewhere classified; R73.9 Hyperglycemia, unspecified; R74.8 Abnormal levels of other serum enzymes; Z79.899 Other long term (current) drug therapy; Z98.42 Cataract extraction status, left eye; Z79.82 Long term (current) use of aspirin; Z86.73 Personal history of transient ischemic attack (TIA), and cerebral infarction without residual deficits; Z90.49 Acquired absence of other specified parts of digestive tract; Z98.41 Cataract extraction status, right eye; Z82.49 Family history of ischemic heart disease and other diseases of the circulatory system

== ENCOUNTER 2020-07-17 18:27 | Emergency (ER) | payer MEDICARE ==
[~2020-07-17 18:27] MED LIST changes: +CALMOSEPTINE OI71 GM T; +MILK OF MA400 MG/5 M PO; +PROSCAR5 M1 PO
== END 2020-07-17 20:24 ==
LOC: ED 18:27
DX: S00.93XA Contusion of unspecified part of head, initial encounter (principal); J44.9 Chronic obstructive pulmonary disease, unspecified; F32.9 Major depressive disorder, single episode, unspecified; Z79.82 Long term (current) use of aspirin; Z79.899 Other long term (current) drug therapy; X58.XXXA Exposure to other specified factors, initial encounter; Y93.89 Activity, other specified; Y92.89 Other specified places as the place of occurrence of the external cause; Y99.8 Other external cause status

== ENCOUNTER 2020-08-17 19:17 | Emergency (ER) | payer MEDICARE, OTHER ==
[~2020-08-17] VITALS: Wt 53.1 kg
[2020-08-17 19:39] LABS: BILIRUBIN 1+ (Negative); BLOOD 2+ (Negative); CLARITY Cloudy (Clear); COLOR Orange (Yellow); GLUCOSE Negative (Negative); KETONE Negative (Negative); LEUKO ESTERASE 1+ (Negative); NITRITE Positive (Negative); PH 5.5 (4.5-8.0)
[2020-08-17 19:56] LABS: BACTERIA 1+; RBC 21-30 rbc/hpf (0-2)
[2020-08-17 20:22] LABS: BASO # 0.1 10*3/uL (0.0-0.1); BASO % 0.6 % (0.0-1.0); EOS # 0.3 10*3/uL (0.0-0.4); HEMATOCRIT 52.6 % (42.0-52.0); LYMPH % 6.9 % (27.0-41.0); MEAN CELL VOLUME 83.6 fl (80.0-94.0); MEAN CORPUSCULAR HGB 25.1 pg (27.0-31.0); MEAN PLATELET VOLUME 10.5 fl (9.6-12.3); MONO # 1.1 10*3/uL (0.1-1.0); MONO % 8.1 % (3.0-9.0); NEUT # 11.5 10*3/uL (2.3-7.9); NEUT % 81.9 % (47.0-73.0); PLATELET COUNT AUTOMATED 248 10*3/uL (130-400); RED BLOOD COUNT 6.29 10*6/uL (4.50-5.90); RED CELL DISTRI WIDTH 27.9 % (0-14.5)
[2020-08-17 21:47] LABS: ALBUMIN 2.3 gm/dl (3.1-4.5); ALKALINE PHOSPHATASE 171 U/L (45-117); BUN 14 mg/dl (7-24); CHLORIDE 107 mmol/L (98-107); CREATININE 0.82 mg/dL (0.70-1.30); POTASSIUM 3.9 mmol/L (3.5-5.1); SGOT/AST 23 IU/L (3-35); SGPT/ALT 18 U/L (12-78); SODIUM 139 mmol/L (136-145); TOTAL PROTEIN 6.7 gm/dL (6.4-8.2)
[2020-08-17] MEDS ORDERED: CIPRO500 MG PO (22:02)
[2020-08-29] MEDS ORDERED: CEPHALEXIN500 M1 PO (23:47)
== END 2020-08-17 22:28 ==
LOC: ED 19:17
PROVIDERS: Emergency Medicine; Nurse Practitioner Family
DX: N39.0 Urinary tract infection, site not specified (principal); Z87.891 Personal history of nicotine dependence; Z90.49 Acquired absence of other specified parts of digestive tract; Z79.82 Long term (current) use of aspirin; Z79.899 Other long term (current) drug therapy

== ENCOUNTER 2020-08-31 19:19 | Inpatient (IN) | payer MEDICARE, OTHER ==
[~2020-08-31] VITALS: Ht 170.1 cm; Wt 50.5 kg
[~2020-08-31 19:19] MED LIST changes: +CEPHALEXIN500 M1 PO; +CIPRO500 MG PO
[2020-08-31 19:21] VITALS: BP 118/63
[2020-08-31 20:44] LABS: BASO # 0.1 10*3/uL (0.0-0.1); BASO % 0.9 % (0.0-1.0); EOS # 0.2 10*3/uL (0.0-0.4); EOS % 1.2 % (1.0-4.0); HEMATOCRIT 50.3 % (42.0-52.0); LYMPH # 0.8 10*3/uL (1.3-4.4); LYMPH % 5.5 % (27.0-41.0); MEAN CELL VOLUME 86.9 fl (80.0-94.0); MEAN CORPUSCULAR HGB 26.4 pg (27.0-31.0); MEAN CORPUSCULAR HGB CONC 30.4 g/dl (33.0-37.0); MEAN PLATELET VOLUME 10.9 fl (9.6-12.3); MONO # 1.1 10*3/uL (0.1-1.0); MONO % 7.2 % (3.0-9.0); NEUT # 12.6 10*3/uL (2.3-7.9); NEUT % 84.7 % (47.0-73.0); PLATELET COUNT AUTOMATED 219 10*3/uL (130-400); RED BLOOD COUNT 5.79 10*6/uL (4.50-5.90); WHITE BLOOD COUNT 14.9 10*3/uL (4.8-10.8)
[2020-08-31 21:00] LABS: ALBUMIN 2.3 gm/dl (3.1-4.5); ALKALINE PHOSPHATASE 166 U/L (45-117); BUN 12 mg/dl (7-24); CHLORIDE 106 mmol/L (98-107); CREATININE 0.91 mg/dL (0.70-1.30); POTASSIUM 4.8 mmol/L (3.5-5.1); SGOT/AST 25 IU/L (3-35); SGPT/ALT 15 U/L (12-78); SODIUM 137 mmol/L (136-145); TOTAL PROTEIN 6.5 gm/dL (6.4-8.2)
[2020-08-31 22:56] LABS: LIPASE 82 U/L (73-393)
[2020-09-01] VITALS (8 sets, daily range): BP systolic 101–128; BP diastolic 58–74
[2020-09-01] MEDS ORDERED: EMOLLIENT CREA454 GM T (02:58)
[2020-09-01] MEDS ORDERED: CALMOSEPTINE O3.5 GM T (03:00)
[2020-09-01] MEDS ORDERED: FLOMAX0.4 MG PO (03:01)
[2020-09-01] MEDS ORDERED: Ipratropium Brom3 ML INH (03:01)
[2020-09-01] MEDS ORDERED: IMODIUM A-D2 M2 PO (03:02)
[2020-09-01] MEDS ORDERED: PAIN RELIEVER650 MG PO (03:03)
[2020-09-01 08:34] LABS: BASO # 0.1 10*3/uL (0.0-0.1); BASO % 0.7 % (0.0-1.0); EOS # 0.2 10*3/uL (0.0-0.4); EOS % 1.4 % (1.0-4.0); HEMATOCRIT 49.3 % (42.0-52.0); LYMPH # 0.6 10*3/uL (1.3-4.4); LYMPH % 5.1 % (27.0-41.0); MEAN CELL VOLUME 84.1 fl (80.0-94.0); MEAN CORPUSCULAR HGB 26.5 pg (27.0-31.0); MEAN CORPUSCULAR HGB CONC 31.4 g/dl (33.0-37.0); MEAN PLATELET VOLUME 10.5 fl (9.6-12.3); MONO # 0.8 10*3/uL (0.1-1.0); MONO % 6.8 % (3.0-9.0); NEUT # 10.5 10*3/uL (2.3-7.9); NEUT % 85.5 % (47.0-73.0); PLATELET COUNT AUTOMATED 226 10*3/uL (130-400); RED BLOOD COUNT 5.86 10*6/uL (4.50-5.90); RED CELL DISTRI WIDTH 28.7 % (0-14.5); WHITE BLOOD COUNT 12.3 10*3/uL (4.8-10.8)
[2020-09-01 09:00] LABS: ALBUMIN 2.2 gm/dl (3.1-4.5); ALKALINE PHOSPHATASE 153 U/L (45-117); BUN 11 mg/dl (7-24); CHLORIDE 108 mmol/L (98-107); CREATININE 0.65 mg/dL (0.70-1.30); POTASSIUM 4.3 mmol/L (3.5-5.1); SGOT/AST 20 IU/L (3-35); SGPT/ALT 15 U/L (12-78); SODIUM 139 mmol/L (136-145); TOTAL PROTEIN 6.2 gm/dL (6.4-8.2)
[2020-09-02] VITALS: BP 111/67
[2020-09-02 06:38] LABS: BUN 12 mg/dl (7-24); CHLORIDE 108 mmol/L (98-107); CREATININE 0.67 mg/dL (0.70-1.30); POTASSIUM 4.1 mmol/L (3.5-5.1); SODIUM 140 mmol/L (136-145)
[2020-09-02 06:46] LABS: BASO # 0.1 10*3/uL (0.0-0.1); BASO % 0.6 % (0.0-1.0); EOS # 0.3 10*3/uL (0.0-0.4); EOS % 1.9 % (1.0-4.0); HEMATOCRIT 48.9 % (42.0-52.0); LYMPH # 0.9 10*3/uL (1.3-4.4); MEAN CELL VOLUME 85.5 fl (80.0-94.0); MEAN CORPUSCULAR HGB 26.7 pg (27.0-31.0); MEAN CORPUSCULAR HGB CONC 31.3 g/dl (33.0-37.0); MEAN PLATELET VOLUME 11.4 fl (9.6-12.3); MONO % 6.8 % (3.0-9.0); NEUT # 12.2 10*3/uL (2.3-7.9); NEUT % 83.8 % (47.0-73.0); PLATELET COUNT AUTOMATED 229 10*3/uL (130-400); RED BLOOD COUNT 5.72 10*6/uL (4.50-5.90); RED CELL DISTRI WIDTH 29.1 % (0-14.5); WHITE BLOOD COUNT 14.5 10*3/uL (4.8-10.8)
[2020-09-02 06:47] LABS: INTERNATIONAL NORM RATIO 1.2 (2.0-3.5)
[2020-09-02 08:00] VITALS: BP 99/61
[2020-09-02 12:00] VITALS: BP 98/48
[2020-09-02 13:56] LABS: BODY FLUID WBC 94 /uL
[2020-09-02 14:51] LABS: BF LYMPHOCYTES 23 %; BF MACROPHAGES 36 %; BF MESOTHELIALS 4 %; BF NEUTROPHILS 37 %
[2020-09-02 16:00] VITALS: BP 100/48
[2020-09-02 20:00] VITALS: BP 97/42
[2020-09-03] VITALS: BP 125/90
[2020-09-03 06:41] LABS: BASO # 0.1 10*3/uL (0.0-0.1); BASO % 0.6 % (0.0-1.0); EOS # 0.3 10*3/uL (0.0-0.4); EOS % 2.5 % (1.0-4.0); HEMATOCRIT 43.8 % (42.0-52.0); LYMPH # 0.6 10*3/uL (1.3-4.4); LYMPH % 5.6 % (27.0-41.0); MEAN CELL VOLUME 82.8 fl (80.0-94.0); MEAN CORPUSCULAR HGB 26.3 pg (27.0-31.0); MEAN CORPUSCULAR HGB CONC 31.7 g/dl (33.0-37.0); MEAN PLATELET VOLUME 10.9 fl (9.6-12.3); MONO # 0.8 10*3/uL (0.1-1.0); MONO % 6.9 % (3.0-9.0); NEUT # 9.3 10*3/uL (2.3-7.9); NEUT % 83.9 % (47.0-73.0); PLATELET COUNT AUTOMATED 209 10*3/uL (130-400); RED BLOOD COUNT 5.29 10*6/uL (4.50-5.90); RED CELL DISTRI WIDTH 28.4 % (0-14.5)
[2020-09-03 07:03] LABS: BUN 11 mg/dl (7-24); CHLORIDE 107 mmol/L (98-107); CREATININE 0.68 mg/dL (0.70-1.30); POTASSIUM 3.6 mmol/L (3.5-5.1); SODIUM 140 mmol/L (136-145)
[2020-09-03 08:00] VITALS: BP 102/60
[2020-09-03 11:07] LABS: ACID FAST SPEC PROCESSING Direct Inoculation (.)
[2020-09-03 12:00] VITALS: BP 110/58
[2020-09-03 16:00] VITALS: BP 106/78
[2020-09-03] MEDS ORDERED: CIPRO250 MG PO (16:12)
[2020-09-03] MEDS ORDERED: CIPRO500 MG PO (16:12)
[2020-10-18 13:07] LABS: ACID FAST CULTURE Negative (.)
== END 2020-09-03 20:30 | DRG 871 ==
LOC: ED 19:19 → 5E 09-01 01:02 → EDHOLD 09-01 01:02 → 5E 09-01 01:16
PROVIDERS: Emergency Medicine; Internal Medicine; Student in an Organized Health Care Education/Training Program; ADMIT Internal Medicine; ATTEND Internal Medicine
PROC: 0W9G3ZZ Drainage of Peritoneal Cavity, Percutaneous Approach (ICD-10-PCS; principal; 2020-09-02)
DX: A41.9 Sepsis, unspecified organism (principal); E43 Unspecified severe protein-calorie malnutrition; N39.0 Urinary tract infection, site not specified; R18.8 Other ascites; E87.2 Acidosis; K76.6 Portal hypertension; Z68.1 Body mass index [BMI] 19.9 or less, adult; J44.9 Chronic obstructive pulmonary disease, unspecified; R65.20 Severe sepsis without septic shock; F32.9 Major depressive disorder, single episode, unspecified; Z66 Do not resuscitate; R31.9 Hematuria, unspecified; N40.0 Benign prostatic hyperplasia without lower urinary tract symptoms; E78.5 Hyperlipidemia, unspecified; R00.1 Bradycardia, unspecified; B96.4 Proteus (mirabilis) (morganii) as the cause of diseases classified elsewhere; K74.60 Unspecified cirrhosis of liver; K56.41 Fecal impaction; Z86.73 Personal history of transient ischemic attack (TIA), and cerebral infarction without residual deficits; Z90.49 Acquired absence of other specified parts of digestive tract; Z82.49 Family history of ischemic heart disease and other diseases of the circulatory system; Z79.82 Long term (current) use of aspirin; Z79.899 Other long term (current) drug therapy

== ENCOUNTER 2020-09-11 19:58 | Inpatient (IN) | payer MEDICARE, OTHER ==
[~2020-09-11] VITALS: Ht 172.7 cm; Wt 48.8 kg
[~2020-09-11 19:58] MED LIST changes: +CALMOSEPTINE O3.5 GM T; +CIPRO250 MG PO; +EMOLLIENT CREA454 GM T; +IMODIUM A-D2 M2 PO; +Ipratropium Brom3 ML INH; +PAIN RELIEVER650 MG PO
[2020-09-11 20:01] VITALS: BP 125/68
[2020-09-11 21:00] LABS: BASO # 0.1 10*3/uL (0.0-0.1); BASO % 0.7 % (0.0-1.0); EOS # 0.3 10*3/uL (0.0-0.4); EOS % 1.9 % (1.0-4.0); HEMATOCRIT 49.1 % (42.0-52.0); LYMPH # 0.9 10*3/uL (1.3-4.4); LYMPH % 6.1 % (27.0-41.0); MEAN CELL VOLUME 87.5 fl (80.0-94.0); MEAN CORPUSCULAR HGB 27.3 pg (27.0-31.0); MEAN CORPUSCULAR HGB CONC 31.2 g/dl (33.0-37.0); MEAN PLATELET VOLUME 10.9 fl (9.6-12.3); MONO # 1.3 10*3/uL (0.1-1.0); MONO % 8.5 % (3.0-9.0); NEUT # 12.2 10*3/uL (2.3-7.9); NEUT % 82.3 % (47.0-73.0); PLATELET COUNT AUTOMATED 227 10*3/uL (130-400); RED BLOOD COUNT 5.61 10*6/uL (4.50-5.90); RED CELL DISTRI WIDTH 28.6 % (0-14.5); WHITE BLOOD COUNT 14.9 10*3/uL (4.8-10.8)
[2020-09-11 21:10] LABS: INTERNATIONAL NORM RATIO 1.2 (2.0-3.5)
[2020-09-11 21:17] LABS: ALBUMIN 2.4 gm/dl (3.1-4.5); ALKALINE PHOSPHATASE 158 U/L (45-117); BUN 13 mg/dl (7-24); CHLORIDE 103 mmol/L (98-107); CREATININE 0.92 mg/dL (0.70-1.30); LIPASE 85 U/L (73-393); POTASSIUM 4.2 mmol/L (3.5-5.1); SGOT/AST 22 IU/L (3-35); SGPT/ALT 17 U/L (12-78); SODIUM 136 mmol/L (136-145); TOTAL PROTEIN 6.7 gm/dL (6.4-8.2)
[2020-09-11 23:01] LABS: BILIRUBIN 1+ (Negative); BLOOD 3+ (Negative); CLARITY Turbid (Clear); COLOR Dark Yellow (Yellow); GLUCOSE Negative (Negative); KETONE Trace (Negative); LEUKO ESTERASE 1+ (Negative); NITRITE Negative (Negative)
[2020-09-11 23:28] LABS: RBC 21-30 rbc/hpf (0-2)
[2020-09-11 23:29] LABS: BACTERIA 1+
[2020-09-12 01:12] VITALS: BP 136/78
[2020-09-12 08:00] VITALS: BP 104/59
[2020-09-12 10:19] VITALS: BP 114/48
[2020-09-12 16:07] VITALS: BP 117/56
[2020-09-12 17:30] VITALS: BP 108/42
[2020-09-12] MEDS ORDERED: Ipratropium Brom3 ML INH (17:49)
[2020-09-12] MEDS ORDERED: MILK OF MA400 MG/5 M PO (17:50)
[2020-09-12 20:00] VITALS: BP 110/44
[2020-09-13] VITALS: BP 108/62
[2020-09-13 06:32] LABS: BASO # 0.1 10*3/uL (0.0-0.1); BASO % 0.7 % (0.0-1.0); EOS # 0.3 10*3/uL (0.0-0.4); EOS % 2.1 % (1.0-4.0); HEMATOCRIT 49.2 % (42.0-52.0); LYMPH % 6.3 % (27.0-41.0); MEAN CELL VOLUME 86.5 fl (80.0-94.0); MEAN CORPUSCULAR HGB 27.1 pg (27.0-31.0); MEAN CORPUSCULAR HGB CONC 31.3 g/dl (33.0-37.0); MEAN PLATELET VOLUME 11.2 fl (9.6-12.3); MONO # 0.9 10*3/uL (0.1-1.0); MONO % 5.8 % (3.0-9.0); NEUT # 12.6 10*3/uL (2.3-7.9); PLATELET COUNT AUTOMATED 258 10*3/uL (130-400); RED BLOOD COUNT 5.69 10*6/uL (4.50-5.90); RED CELL DISTRI WIDTH 28.7 % (0-14.5)
[2020-09-13 06:51] LABS: ALBUMIN 2.3 gm/dl (3.1-4.5); ALKALINE PHOSPHATASE 162 U/L (45-117); BUN 12 mg/dl (7-24); CHLORIDE 107 mmol/L (98-107); POTASSIUM 4.9 mmol/L (3.5-5.1); SGOT/AST 37 IU/L (3-35); SGPT/ALT 18 U/L (12-78); SODIUM 136 mmol/L (136-145); TOTAL PROTEIN 6.5 gm/dL (6.4-8.2)
[2020-09-13 08:00] VITALS: BP 124/66
[2020-09-13 12:00] VITALS: BP 109/56
[2020-09-13 16:00] VITALS: BP 102/56
[2020-09-13 20:00] VITALS: BP 110/53
[2020-09-14] VITALS: BP 95/51
[2020-09-14 08:00] VITALS: BP 125/51
[2020-09-14] MEDS ORDERED: CIPROFLOXACIN250 MG PO (10:28)
[2020-09-14 10:40] LABS: BASO # 0.1 10*3/uL (0.0-0.1); BASO % 0.7 % (0.0-1.0); EOS # 0.1 10*3/uL (0.0-0.4); EOS % 0.8 % (1.0-4.0); HEMATOCRIT 49.9 % (42.0-52.0); LYMPH % 5.7 % (27.0-41.0); MEAN CELL VOLUME 88.2 fl (80.0-94.0); MEAN CORPUSCULAR HGB 27.2 pg (27.0-31.0); MEAN CORPUSCULAR HGB CONC 30.9 g/dl (33.0-37.0); MEAN PLATELET VOLUME 10.4 fl (9.6-12.3); MONO # 0.9 10*3/uL (0.1-1.0); MONO % 5.4 % (3.0-9.0); NEUT # 14.3 10*3/uL (2.3-7.9); NEUT % 86.7 % (47.0-73.0); PLATELET COUNT AUTOMATED 275 10*3/uL (130-400); RED BLOOD COUNT 5.66 10*6/uL (4.50-5.90); WHITE BLOOD COUNT 16.6 10*3/uL (4.8-10.8)
[2020-09-14 10:55] LABS: BUN 15 mg/dl (7-24); CHLORIDE 106 mmol/L (98-107); POTASSIUM 4.8 mmol/L (3.5-5.1); SODIUM 137 mmol/L (136-145)
[2020-09-14 12:00] VITALS: BP 112/53
== END 2020-09-14 15:00 | DRG 871 ==
LOC: ED 19:58 → 4E 22:51 → EDHOLD 22:51 → 4E 09-12 17:06
PROVIDERS: Internal Medicine; ADMIT Internal Medicine; ATTEND Internal Medicine
DX: A41.9 Sepsis, unspecified organism (principal); E43 Unspecified severe protein-calorie malnutrition; R18.8 Other ascites; N39.0 Urinary tract infection, site not specified; Z68.1 Body mass index [BMI] 19.9 or less, adult; K74.60 Unspecified cirrhosis of liver; R16.1 Splenomegaly, not elsewhere classified; R65.20 Severe sepsis without septic shock; J44.9 Chronic obstructive pulmonary disease, unspecified; Z66 Do not resuscitate; K56.41 Fecal impaction; F32.9 Major depressive disorder, single episode, unspecified; E78.5 Hyperlipidemia, unspecified; Z51.5 Encounter for palliative care; N20.0 Calculus of kidney; N40.1 Benign prostatic hyperplasia with lower urinary tract symptoms; S31.829A Unspecified open wound of left buttock, initial encounter; S91.302A Unspecified open wound, left foot, initial encounter; S91.301A Unspecified open wound, right foot, initial encounter; X58.XXXA Exposure to other specified factors, initial encounter; Y93.89 Activity, other specified; Y92.89 Other specified places as the place of occurrence of the external cause; Y99.8 Other external cause status; T83.511D Infection and inflammatory reaction due to indwelling urethral catheter, subsequent encounter; Z98.49 Cataract extraction status, unspecified eye; Z82.49 Family history of ischemic heart disease and other diseases of the circulatory system; Z86.73 Personal history of transient ischemic attack (TIA), and cerebral infarction without residual deficits; Z90.49 Acquired absence of other specified parts of digestive tract

== ENCOUNTER 2020-09-24 14:59 | Observation (INO) | payer MEDICARE, OTHER ==
[~2020-09-24] VITALS: Ht 167.6 cm; Wt 53.1 kg
[~2020-09-24 14:59] MED LIST changes: +CIPROFLOXACIN250 MG PO
[2020-09-24 15:04] VITALS: BP 118/65
[2020-09-24 15:45] LABS: BASO # 0.1 10*3/uL (0.0-0.1); BASO % 0.7 % (0.0-1.0); EOS # 0.2 10*3/uL (0.0-0.4); EOS % 1.4 % (1.0-4.0); HEMATOCRIT 44.1 % (42.0-52.0); LYMPH # 0.8 10*3/uL (1.3-4.4); LYMPH % 5.1 % (27.0-41.0); MEAN CELL VOLUME 88.7 fl (80.0-94.0); MEAN CORPUSCULAR HGB 27.8 pg (27.0-31.0); MEAN CORPUSCULAR HGB CONC 31.3 g/dl (33.0-37.0); MEAN PLATELET VOLUME 11.1 fl (9.6-12.3); MONO # 1.3 10*3/uL (0.1-1.0); MONO % 8.3 % (3.0-9.0); NEUT # 12.7 10*3/uL (2.3-7.9); NEUT % 83.8 % (47.0-73.0); PLATELET COUNT AUTOMATED 307 10*3/uL (130-400); RED BLOOD COUNT 4.97 10*6/uL (4.50-5.90); RED CELL DISTRI WIDTH 26.9 % (0-14.5); WHITE BLOOD COUNT 15.2 10*3/uL (4.8-10.8)
[2020-09-24 15:57] LABS: ACT PARTIAL THROMBO TIME 29.1 SECONDS (20.0-32.1); INTERNATIONAL NORM RATIO 1.1 (2.0-3.5)
[2020-09-24 16:15] LABS: ALBUMIN 2.2 gm/dl (3.1-4.5); ALKALINE PHOSPHATASE 239 U/L (45-117); BUN 16 mg/dl (7-24); CHLORIDE 107 mmol/L (98-107); CREATININE 0.86 mg/dL (0.70-1.30); LIPASE 75 U/L (73-393); POTASSIUM 4.5 mmol/L (3.5-5.1); SGOT/AST 62 IU/L (3-35); SGPT/ALT 38 U/L (12-78); SODIUM 137 mmol/L (136-145); TOTAL PROTEIN 6.4 gm/dL (6.4-8.2); TROPONIN I < 0.015 ng/ml (<0.045)
[2020-09-24 16:49] LABS: BILIRUBIN Negative (Negative); BLOOD 2+ (Negative); CLARITY Cloudy (Clear); COLOR Dark Yellow (Yellow); GLUCOSE Negative (Negative); KETONE Trace (Negative); LEUKO ESTERASE 1+ (Negative); NITRITE Negative (Negative)
[2020-09-24 17:03] LABS: CALCIUM OXALATE CRYSTALS 2+; EPITHELIAL CELLS 0-2; RBC 16-20 rbc/hpf (0-2); WBC 21-30 wbc/hpf (0-5)
[2020-09-24 17:04] LABS: BACTERIA 1+; MUCOUS 1+
[2020-09-24 18:47] VITALS: BP 112/76
[2020-09-24 19:45] VITALS: BP 122/55
[2020-09-25] VITALS: BP 116/51
[2020-09-25 06:23] LABS: ALBUMIN 2.2 gm/dl (3.1-4.5); BUN 15 mg/dl (7-24); CHLORIDE 109 mmol/L (98-107); CREATININE 0.58 mg/dL (0.70-1.30); POTASSIUM 4.6 mmol/L (3.5-5.1); SGOT/AST 51 IU/L (3-35); SGPT/ALT 29 U/L (12-78); SODIUM 138 mmol/L (136-145)
[2020-09-25 06:24] LABS: ALKALINE PHOSPHATASE 208 U/L (45-117); TOTAL PROTEIN 5.8 gm/dL (6.4-8.2)
[2020-09-25 07:06] LABS: BASO # 0.1 10*3/uL (0.0-0.1); BASO % 0.8 % (0.0-1.0); EOS # 0.3 10*3/uL (0.0-0.4); EOS % 2.3 % (1.0-4.0); LYMPH # 0.7 10*3/uL (1.3-4.4); LYMPH % 6.2 % (27.0-41.0); MEAN CELL VOLUME 88.5 fl (80.0-94.0); MEAN CORPUSCULAR HGB 27.8 pg (27.0-31.0); MEAN CORPUSCULAR HGB CONC 31.4 g/dl (33.0-37.0); MEAN PLATELET VOLUME 10.8 fl (9.6-12.3); MONO # 0.8 10*3/uL (0.1-1.0); MONO % 7.4 % (3.0-9.0); NEUT # 9.2 10*3/uL (2.3-7.9); NEUT % 82.6 % (47.0-73.0); PLATELET COUNT AUTOMATED 221 10*3/uL (130-400); RED BLOOD COUNT 4.86 10*6/uL (4.50-5.90); RED CELL DISTRI WIDTH 26.7 % (0-14.5); WHITE BLOOD COUNT 11.1 10*3/uL (4.8-10.8)
[2020-09-25 08:00] VITALS: BP 103/46
[2020-09-25 12:00] VITALS: BP 121/61
[2020-09-25] MEDS ORDERED: LASIX20 MG PO (14:55)
[2020-09-25 16:00] VITALS: BP 97/46
[2020-09-25 17:11] LABS: BODY FLUID WBC 84 /uL
[2020-09-25 17:58] LABS: BF LYMPHOCYTES 3 %; BF MACROPHAGES 68 %; BF MESOTHELIALS 4 %; BF MONOCYTES 5 %; BF NEUTROPHILS 20 %
== END 2020-09-25 21:24 ==
LOC: ED 14:59 → 4E 17:15 → EDHOLD 17:15 → 4E 18:58
PROVIDERS: Emergency Medicine; Internal Medicine; ADMIT Student in an Organized Health Care Education/Training Program; ATTEND Student in an Organized Health Care Education/Training Program
DX: R18.8 Other ascites (principal); A41.9 Sepsis, unspecified organism; N39.0 Urinary tract infection, site not specified; G93.41 Metabolic encephalopathy; R00.0 Tachycardia, unspecified; E43 Unspecified severe protein-calorie malnutrition; R79.82 Elevated C-reactive protein (CRP); R74.01 Elevation of levels of liver transaminase levels; E83.41 Hypermagnesemia; R41.0 Disorientation, unspecified; E87.2 Acidosis; D72.829 Elevated white blood cell count, unspecified; R10.84 Generalized abdominal pain; J44.9 Chronic obstructive pulmonary disease, unspecified; F32.9 Major depressive disorder, single episode, unspecified; E78.5 Hyperlipidemia, unspecified; N40.0 Benign prostatic hyperplasia without lower urinary tract symptoms; K74.60 Unspecified cirrhosis of liver; R16.1 Splenomegaly, not elsewhere classified; Z86.73 Personal history of transient ischemic attack (TIA), and cerebral infarction without residual deficits; Z20.822 Contact with and (suspected) exposure to COVID-19; Z90.49 Acquired absence of other specified parts of digestive tract; Z98.890 Other specified postprocedural states